=== PATIENT | female | born 1955 | race Caucasian/White ===

== ENCOUNTER 2020-06-15 12:38 | Outpatient (CLI) | payer OTHER, SELFPAY ==
--- NOTE | 2020-06-15 12:43 | ECG_ITS ---
Measurements Intervals [place] Rate: 66 P: 41 OH: 178 QRS: -12 QRSD: 84 T: -3 QT: 403 QTc: 423 Interpretive Statements SINUS RHYTHM LOW QRS VOLTAGE IN PRECORDIAL LEADS VOLTAGE CRITERIA FOR LVH BORDERLINE T WAVE ABNORMALITY- INFERIOR LEADS BASELINE ARTIFACT- I, II, AVR, AVL, AVF BORDERLINE ECG Electronically Signed On 06-15-2020 13:20:07 CDT by Julio Cesar Negro D.O.
[2020-06-15 13:30] LABS: Anion Gap 8 mmol/L (8-16); Blood Urea Nitrogen 12 mg/dL (7-17); Calcium 8.5 mg/dL (8.4-10.2); Carbon Dioxide 30 mmol/L (22-30); Chloride 99 mmol/L (98-107); Estimated Glomerular Filt Rate > 60; Glucose 126 mg/dL (65-105); Potassium 3.9 mmol/L (3.4-5.0); Sodium 137 mmol/L (137-145)
== END 2020-06-15 12:39 | disposition home or self-care (01) ==
PROVIDERS: Anesthesiology; PCP Internal Medicine; Visit Provider Obstetrics & Gynecology
DX: Z01.818 Encounter for other preprocedural examination (principal); I10 Essential (primary) hypertension
CPT/HCPCS: 36415; 80048; 93005

== ENCOUNTER 2020-06-19 00:37 | Outpatient (CLI) | payer OTHER, SELFPAY ==
[2020-06-19 16:30] LABS: SARS-CoV-2 RNA PCR Negative
== END 2020-06-19 00:38 | disposition home or self-care (01) ==
LOC: ANHCOVIDDT 00:38
PROVIDERS: PCP Internal Medicine; Visit Provider Obstetrics & Gynecology
DX: Z01.812 Encounter for preprocedural laboratory examination (principal); Z20.828 Contact with and (suspected) exposure to other viral communicable diseases
CPT/HCPCS: 87635; C9803; U0003

== ENCOUNTER 2020-06-21 00:08 | Day surgery (SDC) | payer OTHER, SELFPAY ==
[2020-06-13 14:55] VITALS: BMI 38.5
[2020-06-21] MEDS: ACETAMINOPHEN 500 MG TABLET 1000 MG PO (07:15)
--- NOTE | 2020-06-21 07:17 | WPDHPUPDATE1 ---
History and Physical Update Update Date/Time: 06/21/20 07:17 History and Physical has been reviewed, including an updated exam of the patient. There are NO changes in the patient's condition. Risks, benefits, and alternatives have been discussed and questions answered. Patient agrees to proceed with procedure.
[2020-06-21 07:22] VITALS: BP 127/51; PULSE 75; RESP 20; TEMP 36.5; O2SAT 97
[2020-06-21] MEDS: LACTATED RINGERS 1,000 ML 30 ML IV CONT (07:40)
--- NOTE | 2020-06-21 07:57 | SUR.PREOP ---
0710-PT REFUSES TO BE WEIGHED, STATES HER WEIGHT AND SAYS I HAVE A MEDICAL SCALE AT HOME AND THAT'S WHAT MY WEIGHT IS AND I WOULDN'T LIE ABOUT AND NO ONE ELSE MAKES ME WEIGH AND THAT'S HOW IT IS GOING TO BE . 0740-L. ANTONIA RN, ASST. DIRECTOR, AWARE OF ABOVE. WILL INFORM DR. SY FOR FURTHER GUIDANCE.
--- NOTE | 2020-06-21 08:12 | SUR.PREOP ---
0810-DR. SY AWARE OF PT'S REFUSAL TO WEIGH AND IS OKAY TO PROCEED WITH STATED WEIGHT.
--- NOTE | 2020-06-21 08:28 | P.PNAN_ITS ---
Anes - Initial Pre Proc Eval Procedure: Operation Date: 06/21/20 09:00 Proposed Procedures p Hysteroscopy, Dilation And Curettage With Endometrial Biopsy - Rakel Zhou MD Date/Time: 06/21/20 08:28 Surgeon: Rakel Zhou MD Pre Op Diagnosis: Postmenopausal Bleeding Patient Data Age: 64 Gender: F Height: 5 ft 4 in Weight: 101.5 kg Last Vital Signs Temp 97.7 F 06/21/20 07:22 Pulse 75 06/21/20 07:22 Resp 20 06/21/20 07:22 BP 127/51 L 06/21/20 07:22 Pulse Ox 97 06/21/20 07:22 Allergies Allergy/AdvReac Type Severity Reaction Status Date / Time amoxicillin AdvReac Mild Rash Verified 06/21/20 07:55 clavulanic acid AdvReac Mild Rash Verified 06/21/20 07:55 diphenhydramine AdvReac Unknown FEELS Verified 06/21/20 07:55 [From Benadryl] LIKE I HAVE BUGS CRAWLING ON MY LEGS CODEINE Allergy Unknown KNOCKS ME Uncoded 06/21/20 07:21 OUT- CAN'T MOVE Home Medications Medication Instructions Recorded Confirmed Type cholecalciferol (vitamin D3) 25 mcg PO HS 06/13/20 06/21/20 History folic acid 1 mg PO HS 06/13/20 06/21/20 History hydrochlorothiazide 12.5 mg PO HS 06/13/20 06/21/20 History sertraline 50 mg PO HS 06/13/20 06/21/20 History trazodone 50 mg PO HS 06/13/20 06/21/20 History Patient hx anesthesia problems: post op nausea/vomiting Family hx anesthesia problems: none [facility] Past Medical History Medical History (Updated 06/21/20 @ 08:27 by Vicente Noel MD) Anxiety Asthma GERD (gastroesophageal reflux disease) Hypertension Social History Social History Smoking packs per day: 1 Smoking cigarettes per day: 20.0 Years smoked: 25 Smoking pack-years: 25.00 Smoking status: Former smoker Tobacco type: cigarettes Smoking end date: 08/25/99 Living arrangements: with family Spiritual care concerns: No Anes - Eval Final PreProcedure Day of Procedure 06/21/20 08:28 Patient weight: morbidly obese Heart: regular rate and rhythm Lungs: clear to auscultation Airway: Mallampati scale class III Neurological: alert and oriented Last oral intake: >/= 8 hours ASA classification: III Emergent: no Anesthetic plan: proceed Anesthesia type and monitoring: general GIVS (may use LMA if needed) and standard monitoring Informed Consent: The patient's anesthetic plan and its attendant risks and benefits were discussed with the patient/family/POA. Questions were solicited an d answers provided to the satisfaction of the patient/family/POA.
[2020-06-21] MEDS: SCOPOLAMINE 1.5 MG PATCH TRANSDERM (08:45)
--- NOTE | 2020-06-21 09:17 | SUR.OPER ---
300ml ns in, 300ml ns out. aware
[2020-06-21 09:26] VITALS: BP 123/58; PULSE 76; RESP 16; O2SAT 95
--- NOTE | 2020-06-21 09:29 | PM.PROC ---
Procedure Note - Detailed Date of procedure: 06/21/20 Pre-op diagnosis: Postmenopausal Bleeding Post-op diagnosis: same Procedure performed: Hysteroscopy D&C Description of procedure: The patient was taken the operating room. She was prepped and draped in the dorsal lithotomy position after induction of mac anesthesia. A speculum was placed in the vagina. The cervix grasped with a tenaculum. The cervix was injected at 3 and 9:00 a.m. with 1% lidocaine. Cervix was dilated up to 1 cm. The hysteroscope was inserted the intrauterine cavity and the above findings were noted. A medium-size curette was then used to curettage all surfaces within the endometrial cavity. The endometrial curettings were collected on a Telfa. There were submitted to the pathology department. Hysteroscope was reinserted the intrauterine cavity to re-examine the endometrial surfaces. The hysteroscope was withdrawn. The tenaculum was removed. The speculum was removed. The patient tolerated the procedure well. She was taken recovery room stable condition. Sponge lap needle counts were correct x2. Anesthesia: MAC Surgeon: Rakel Zhou MD Estimated blood loss (mL): 75 Drains: No Packing: No Pathology: yes Complications: No immediate complications Condition: stable Disposition: PACU Findings: Normal appearing endometrium. There was normal appearing vulva vagina and cervix.
[2020-06-21 09:45] VITALS: BP 130/55; PULSE 69; RESP 16
[2020-06-21 10:00] VITALS: BP 143/71; PULSE 68; RESP 16
[2020-06-21 10:15] VITALS: BP 144/66; PULSE 68; RESP 16
== END 2020-06-21 10:30 | disposition home or self-care (01) ==
PROVIDERS: PCP Internal Medicine; Visit Provider Obstetrics & Gynecology
PROC: 0U5B8ZZ Destruction of Endometrium, Via Natural or Artificial Opening Endoscopic (ICD-10-PCS; CPT 58563; principal; 2020-06-21 09:00)
DX: N95.0 Postmenopausal bleeding (principal); I10 Essential (primary) hypertension; J45.909 Unspecified asthma, uncomplicated; K21.9 Gastro-esophageal reflux disease without esophagitis; F41.9 Anxiety disorder, unspecified; Z87.891 Personal history of nicotine dependence; E66.01 Morbid (severe) obesity due to excess calories; Z68.38 Body mass index [BMI] 38.0-38.9, adult
CPT/HCPCS: 58558; 88305; A9270; J1100; J2250; J2405; J2704; J7120

== ENCOUNTER 2020-11-02 14:04 | Outpatient (CLI) | payer OTHER, MEDICARE, SELFPAY | END 2020-11-02 14:05 | disposition home or self-care (01) | LOC: ANHCOVIDVC 14:04 | PROVIDERS: PCP Internal Medicine | DX: Z23 Encounter for immunization (principal) | CPT/HCPCS: 0001A; 91300 ==

== ENCOUNTER 2020-11-23 14:11 | Outpatient (CLI) | payer OTHER, MEDICARE, SELFPAY | END 2020-11-23 14:12 | disposition home or self-care (01) | LOC: ANHCOVIDVC 14:11 | PROVIDERS: PCP Internal Medicine | DX: Z23 Encounter for immunization (principal) | CPT/HCPCS: 0002A; 91300 ==

== ENCOUNTER 2021-05-07 01:52 | Emergency (ER) | payer OTHER, SELFPAY ==
--- NOTE | ~2021-05-07 | XR_ITS ---
EXAMINATION: XR ribs LT 2V w CXR 2V DATE: 05/07/2021 02:33 INDICATION: Left chest pain post fall TECHNIQUE: PA and lateral views of the chest and 3 views of the left ribs were obtained. COMPARISON: 09/05/2012 FINDINGS: Minimally displaced anterior left fifth and sixth rib fractures. Couple old healed anterior right rib fracture deformities. Lungs are clear with no focal airspace opacities, pulmonary edema, pleural eff usion or pneumothorax. Rim calcified splenic lesion which could represent sequela of old infection or trauma. Moderate thoracic spondylosis with bridging osteophytes at multiple levels consistent with d iffuse idiopathic skeletal hyperostosis (DISH). IMPRESSION: 1. Minimally displaced acute anterior left fifth and sixth rib fractures. No pneumothorax or other ac jaimie cardiopulmonary disease. Reviewed, dictated and finalized at location A. IMPRESSION: 1. Minimally displaced acute anterior left fifth and sixth rib fractures. No pn eumothorax or other acute cardiopulmonary disease.
--- NOTE | ~2021-05-07 | XR_ITS ---
EXAMINATION: XR shoulder LT min 2V INDICATION: Left shoulder pain TECHNIQUE: Four views of the left shoulder are submitted. COMPARISON: None FINDINGS: Normal alignment. No fracture. There is mild osteoarthritis of the glenohumeral and acromio clavicular joints. Soft tissues are unremarkable. IMPRESSION: 1. No acute osseous abnormality. Reviewed, dictated and finalized at location A.
--- NOTE | 2021-05-07 02:12 | ED.GENADULT ---
HPI - General Adult General Chief complaint: Fall Stated complaint: rib pain Time Seen by Provider: 05/07/21 02:04 History of Present Illness HPI narrative: Patient is a 65-year-old female presents the emergency department with chief complaint of left-sided chest wall pain. The patient reports that on Friday she fell and struck her left side on the floor after she rolled out of bed patient states that she has had pain with movement and reports pain with deep inspiration since the incident. Patient states that her left shoulder hurts is worse whenever she attempts to lift her shoulder. The patient denies weakness in her hand denies any lacerations denies neck pain or head injury. Related Data Home Medications Medication Instructions Recorded Confirmed cholecalciferol (vitamin D3) 25 mcg PO HS 06/13/20 06/21/20 folic acid 1 mg PO HS 06/13/20 06/21/20 hydrochlorothiazide 12.5 mg PO HS 06/13/20 06/21/20 sertraline 50 mg PO HS 06/13/20 06/21/20 trazodone 50 mg PO HS 06/13/20 06/21/20 Allergies Allergy/AdvReac Type Severity Reaction Status Date / Time amoxicillin AdvReac Mild Rash Verified 06/21/20 07:55 clavulanic acid AdvReac Mild Rash Verified 06/21/20 07:55 diphenhydramine AdvReac Unknown FEELS Verified 06/21/20 07:55 [From Benadryl] LIKE I HAVE BUGS CRAWLING ON MY LEGS CODEINE Allergy Unknown KNOCKS ME Uncoded 06/21/20 07:21 OUT- CAN'T MOVE Review of Systems Review of Systems: A 10 system review of systems was completed on the patient and is negative except for what is stated in the HPI. Nursing and ancillary documentation was reviewed. [facility] Past Medical History Medical History Anxiety Asthma GERD (gastroesophageal reflux disease) Hypertension Social History Social History Smoking packs per day: 1 Smoking cigarettes per day: 20.0 Years smoked: 25 Smoking pack-years: 25.00 Smoking status: Former smoker Tobacco type: cigarettes Smoking end date: 08/25/99 Spiritual care concerns: No Exam Narrative: GENERAL: Well-appearing, well-nourished, and in no acute distress. HEAD: Normocephalic, atraumatic. EYES: PERRLA and EOMI. ENT: Nares clear, no rhinorrhea or epistaxis. Mucous membranes moist. NECK: Supple. CHEST: Clear to auscultation. No respiratory distress. There is tenderness to palpation in the left anterior chest wall HEART: Regular rate and rhythm. No murmur heard. Normal peripheral pulses. ABDOMEN: Soft, nontender, nondistended, normal active bowel sounds. EXTREMITIES: Normal range of motion. No edema. There is tenderness to palpation of the left shoulder SKIN: Warm, dry, no rash. NEURO: No focal deficits. Alert and oriented x3. PSYCH: Normal mood and affect. Discharge Plan Discharge Clinical Impression: Contusion of rib on left side Qualifiers: Encounter type: initial encounter Qualified Code(s): S20.212A - Contusion of left front wall of thorax, initial encounter Left shoulder strain Qualifiers: Encounter type: initial encounter Qualified Code(s): S46.912A - Strain of unspecified muscle, fascia and tendon at shoulder and upper arm level, left arm, initial encounter Patient Disposition: Home, Self-Care Condition: Stable Instructions: Antibiotic Form, Rib Fracture (ED), Shoulder Sprain (ED), Rib Contusion (ED) Prescriptions: No Action hydrochlorothiazide 12.5 mg capsule 12.5 mg PO HS RF: 0 sertraline 50 mg tablet 50 mg PO HS RF: 0 cholecalciferol (vitamin D3) 25 mcg (1,000 unit) Tablet 25 mcg PO HS RF: 0 folic acid 1 mg Tablet 1 mg PO HS RF: 0 trazodone 50 mg tablet 50 mg PO HS RF: 0 Follow-up/Referrals: Isaias,MD Helder [Primary Care Provider] - Stand Alone Forms: Work/School Release IP Time of Disposition: 02:53
[2021-05-07 02:44] VITALS: BP 148/80; PULSE 71; RESP 15; TEMP 36.5; O2SAT 99
== END 2021-05-07 03:00 | disposition home or self-care (01) ==
PROVIDERS: Emergency Provider Emergency Medicine; PCP Internal Medicine
DX: S20.212A Contusion of left front wall of thorax, initial encounter (principal); S46.912A Strain of unspecified muscle, fascia and tendon at shoulder and upper arm level, left arm, initial encounter; F41.9 Anxiety disorder, unspecified; I10 Essential (primary) hypertension; Z87.09 Personal history of other diseases of the respiratory system; Z87.19 Personal history of other diseases of the digestive system; Z87.891 Personal history of nicotine dependence; W01.10XA Fall on same level from slipping, tripping and stumbling with subsequent striking against unspecified object, initial encounter
CPT/HCPCS: 71046; 71100; 73030; 99284; A4565

== ENCOUNTER 2021-11-16 13:48 | Emergency (ER) | payer OTHER, SELFPAY ==
--- NOTE | ~2021-11-16 | XR_ITS ---
EXAMINATION: XR hip LT min 3V w AP pelvis INDICATION: Left hip pain TECHNIQUE: AP view the pelvis and three views of the left hip are obtained. COMPARISON: None available FINDINGS: Bone alignment is normal. There is no fracture. There is mild osteoarthritis of the hips. T he soft tissues are unremarkable. IMPRESSION: 1. No acute osseous abnormality. Reviewed, dictated and finalized at location B.
[2021-11-16 14:20] VITALS: BP 135/60; PULSE 71; RESP 18; TEMP 37.1; O2SAT 100
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
== END 2021-11-16 16:51 | disposition home or self-care (01) ==
PROVIDERS: Emergency Provider Emergency Medicine; PCP Internal Medicine
DX: S86.912A Strain of unspecified muscle(s) and tendon(s) at lower leg level, left leg, initial encounter (principal); J45.909 Unspecified asthma, uncomplicated; I10 Essential (primary) hypertension; K21.9 Gastro-esophageal reflux disease without esophagitis; F41.9 Anxiety disorder, unspecified; Z87.891 Personal history of nicotine dependence; V63.6XXA Passenger in heavy transport vehicle injured in collision with car, pick-up truck or van in traffic accident, initial encounter
CPT/HCPCS: 73502; 99283